=== PATIENT | female | born 1950 | race Caucasian/White ===

== ENCOUNTER 2021-02-01 13:07 | Outpatient (CLI) | payer SELFPAY | END 2021-02-01 13:08 | disposition EMS.NT | LOC: EMS 13:07 | DX: M54.9 Dorsalgia, unspecified (principal) ==

== ENCOUNTER 2021-10-22 08:00 | Outpatient (CLI) | payer MEDICARE ==
--- NOTE | 2021-10-22 12:41 | XRAY Report ---
PROCEDURE: Knee 3 View RT INDICATIONS: KNEE PAIN, RIGHT TECHNIQUE: 3 views of the right knee(s) were acquired. COMPARISON: None. FINDINGS: BONES/JOINT: No acute, displaced fracture or dislocation. Small suprapatellar joint effusion. Mild tr icompartment osteophytosis, most prominent along the lateral aspect of the patellofemoral articulatio n. SOFT TISSUES: No significant abnormality. IMPRESSION: 1.No acute osseous abnormality. 2.Small suprapatellar joint effusion. Reviewed by: Cortez Orellana MD on 10/22/2021 12:39 PM PST Approved by: Cortez Orellana MD on 10/22/2021 12:39 PM PST Station ID: [id number]
== END 2021-10-22 23:59 | disposition home or self-care (01) ==
LOC: DI.S 08:00
PROVIDERS: ATTEND Physician Assistant Medical
DX: M25.561 Pain in right knee (principal); M25.461 Effusion, right knee